=== PATIENT | male | born 1995 | race Caucasian/White ===

== ENCOUNTER 2018-02-20 19:03 | Emergency (ER) | payer OTHER ==
[~2018-02-20] VITALS: Ht 170.2 cm; Wt 76.7 kg
[2018-02-20 19:09] VITALS: Ht 170.2 cm; Wt 76.7 kg
[2018-02-20 21:23] VITALS: BP 135/95
== END 2018-02-20 21:23 | disposition home or self-care (01) ==
LOC: ED 19:03
DX: L60.0 Ingrowing nail (principal)
CPT/HCPCS: J2001

== ENCOUNTER 2019-03-10 12:53 | Emergency (ER) | payer OTHER ==
[~2019-03-10] VITALS: Ht 170.2 cm; Wt 80.3 kg
[2019-03-10 13:08] VITALS: Ht 170.2 cm; Wt 80.3 kg
[2019-03-10 15:19] LABS: UA SPECIFIC GRAVITY <=1.005 (1.005-1.035); microscopic required? YES; urine erythrocyte 3+ (NEGATIVE)
[2019-03-10 15:53] VITALS: BP 137/84
== END 2019-03-10 15:53 | disposition home or self-care (01) ==
LOC: ED 12:53
PROVIDERS: Emergency Medicine
DX: N39.0 Urinary tract infection, site not specified (principal)
CPT/HCPCS: 87491; 87591